=== PATIENT | female | born 1995 | race Caucasian/White ===

== ENCOUNTER → 2023-09-05 | Outpatient (CLI) | payer BC, SELFPAY ==
[2023-09-05 11:13] LABS: Glucose Challenge Gest 1H 50g 148 mg/dL (70-140)
== END | disposition home or self-care (01) ==
LOC: LAB 08:17
PROVIDERS: Referring Provider Advanced Practice Midwife; Visit Provider Advanced Practice Midwife
DX: O28.3 Abnormal ultrasonic finding on antenatal screening of mother (principal); Z3A.27 27 weeks gestation of pregnancy; Z87.59 Personal history of other complications of pregnancy, childbirth and the puerperium; O09.92 Supervision of high risk pregnancy, unspecified, second trimester
CPT/HCPCS: 36415; 82950

== ENCOUNTER → 2023-09-29 | Outpatient (CLI) | payer BC, SELFPAY ==
[2023-09-29 10:41] LABS: Bedside Glucose 90 mg/dL (74-106)
[2023-09-29 10:57] LABS: Glucose GTT-Gestation. Fasting 93 mg/dL (<105)
[2023-09-29 11:53] LABS: Glucose GTT-Gestational 1 Hr 144 mg/dL (<190)
[2023-09-29 13:10] LABS: Glucose GTT-Gestational 2 Hr 155 mg/dL (<165)
[2023-09-29 13:42] LABS: Glucose GTT-Gestational 3 Hr 130 L (<145)
== END | disposition home or self-care (01) ==
LOC: LAB 09:24
PROVIDERS: Referring Provider Advanced Practice Midwife; Visit Provider Advanced Practice Midwife
DX: O99.810 Abnormal glucose complicating pregnancy (principal); Z3A.00 Weeks of gestation of pregnancy not specified
CPT/HCPCS: 36415; 82951; 82952; 82962

== ENCOUNTER 2023-11-24 07:14 | Inpatient (IN) | payer BC, SELFPAY ==
[2023-11-24] VITALS (60 sets, daily range): BP systolic 93–135; BP diastolic 52–82; PULSE 72–102; RESP 16; TEMP 35.7–37.5; O2SAT 96–100; BMI 29.1
[2023-11-24] MEDS: Lactated Ringers 1,000 ML 50 ML IV (07:45)
[2023-11-24 07:57] LABS: Absolute Lymphocyte Count 1.33 X10^3/uL (0.83-4.51); Absolute Neutrophil Count 5.8 X10^3/uL (2.0-7.7); Basophil# 0.04 X10^3/uL; Basophil% 0.5 % (0-1); Eosinophil# 0.07 X10^3/uL; Eosinophils% 0.9 % (0-5); Hematocrit 33.6 % (37-47); Hemoglobin 10.4 g/dL (12.0-15.0); Lymphocyte # 1.33 X10^3/ul (0.83-4.51); Lymphocyte % 16.5 % (19-41); Mean Corpuscular Hgb 26.1 pg (27.0-32.0); Mean Corpuscular Volume 84.2 fL (81-99); Mean Platelet Vol. 12.2 fl (6.2-12.0); Monocyte# 0.74 X10^3/uL; Monocyte% 9.2 % (0-10); NRBC Flagged by Analyzer 0 % (0-5); Neutrophil # 5.82 X10^3/uL (2.7-7.7); Neutrophil % 72.3 % (47-70); Platelet Count 217 K/mm3 (150-450); RBC Distribution Width CV 15.8 % (11.6-14.6); RBC Distribution Width SD 47.8 fl (35.1-43.9); Red Blood Count 3.99 M/mm3 (4.2-5.4); White Blood Count 8.1 K/mm3 (4.4-11.0)
[2023-11-24] MEDS: Oxytocin 15 Units/NS 250ml 15 UNITS/250 ML IV.SOLN 2 UNITS IV (08:09)
--- NOTE | 2023-11-24 08:22 | PCM.HP.OB ---
HPI - General General Date of Admission: 11/24/23 HPI Narrative NIXON GOLDSTEIN, is a 28 F who presents at 40 weeks for elective induction of labor. Suspected macrosomia and history of shoulder dystocia Maternal Data Information FILIPPO Calculator Estimated Delivery Date Method Current WG Current Estimate 11/24/23 Manual 40w 0d PFSH PFSH Medical History (Updated 11/24/23 @ 08:32 by Ghada Cantu) Gestational HTN Home Medications ?Medication ?Instructions ?Recorded ?Last Taken ?Type Lactobacillus 1 cap PO DAILY gut health 11/24/23 11/24/23 History acidophilus-Bifidobac.animalis 2.5 billion cell capsule (Daily Probiotic) beef organ 500 mg PO DAILY supplement 11/24/23 11/24/23 History cholecalciferol (vitamin D3) 25 5,000 unit PO DAILY vitamin 11/24/23 11/24/23 History mcg (1,000 unit) capsule (Vitamin D3) evening primrose oil 500 mg capsule 1,500 mg PO DAILY 11/24/23 11/23/23 History [id number]-[id number] 1 mg 1 tab PO DAILY 11/24/23 11/24/23 History tablet vitamin B complex 1 tab PO DAILY vitamin 11/24/23 11/24/23 History Allergy/AdvReac Type Severity Reaction Status Date / Time No Known Allergies Allergy Verified 11/24/23 08:09 Surgical History (Updated 11/24/23 @ 08:32 by Ghada Cantu) H/O wisdom tooth extraction Social History Smoking Status: Never smoker History Elective abortions Hx Para 3 Spontaneous abortions Hx # Term Pregnancies Ectopic pregnancies Hx # Pregnancies Multiple births # of living children NST FHR Rate Baby A Baseline: 130 Variability:: Moderate Accelerations:: 15 x 15 Decelerations:: None FHR Category:: Category I Uterine Activity:: Every 3-4 minutes, mild ROS Constitutional Constitutional: Reports systems reviewed and no addt'l complaints, except as documented; Denies headache(s) Eyes Eyes: Denies acute decrease in peripheral vision, blurry vision or change in vision ENT HEENT: Reports systems reviewed and no addt'l complaints, except as documented Cardiovascular Cardiovascular: Denies chest pain or dizziness Respiratory/Chest Respiratory/Chest: Denies cough, dyspnea, dyspnea on exertion, shortness of breath at rest or shortness of breath with exertion Gastrointestinal Gastrointestinal: Denies abdominal pain, diarrhea, nausea or vomiting Genitourinary Genitourinary: Denies abdominal discomfort Musculoskeletal Musculoskeletal: Denies limited range of motion Integumentary Integumentary: Reports systems reviewed and no addt'l complaints, except as documented Neurologic Neurologic: Reports systems reviewed and no addt'l complaints, except as documented Psychiatric Psychiatric: Reports systems reviewed and no addt'l complaints, except as documented Endocrine Endocrinology: Reports systems reviewed and no addt'l complaints, except as documented Hematologic/Lymphatic Hematologic/Lymphatic: Reports systems reviewed and no addt'l complaints, except as documented Allergic/Immunologic Allergic/Immunologic: Reports systems reviewed and no addt'l complaints, except as documented Vital Signs Vital Signs Vital Signs: 11/24/23 07:57 11/24/23 07:57 11/24/23 07:57 Temperature 99.5 F H Temperature Source Temporal Pulse Rate Respiratory Rate 16 Blood Pressure BP Systolic BP Diastolic 11/24/23 07:57 11/24/23 07:58 11/24/23 07:58 Temperature 99.5 F H Temperature Source Pulse Rate 94 Respiratory Rate Blood Pressure 121/74 H BP Systolic 121 BP Diastolic 74 Weight Weight: 191 lb 9.307 oz Body Mass Index (BMI) 29.1 Physical Exam Const alert and oriented x3 General Appearance: cooperative Orientation / Consciousness: awake, oriented to person, oriented to place and oriented to time Exam Limitations: no limitations HEENT normocephalic Head and Scalp: normal to inspection, normocephalic and atraumatic Face and Sinus: normal facial exam Eyes General Eye: normal appearance of both eyes Neck full ROM Chest Chest: symmetrical chest wall rise Resp normal respiratory effort and normal air movement Auscultation: clear to auscultation bilaterally Cardio regular rate, regular rhythm, S1 normal heart sound, S2 normal heart sound, no murmurs, no rub, no gallops and no clicks GI normal to inspection, nondistended, normoactive bowel sounds and non-tender appearance of the vagina normal Bladder / Kidney Exam: no CVA tenderness Back/Spine normal ROM Extremity normal to inspection and full ROM Skin no rashes or lesions noted Neuro oriented x3, CN's II-XII intact bilaterally and moves all extremities Sensorium / Orientation: awake, alert and oriented to person Motor Exam: clonus absent Deep Tendon Reflexes: Rt Patellar (L4): 2+ and Lt Patellar (L4): 2+ Labs Labs Labs: Blood Type O NEGATIVE Antibody Screen NEGATIVE Hct 33.6 % (37-47) L Hgb 10.4 g/dL (12.0-15.0) L Syphilis Total Ab Non-reactive Glucose 1 Hr 50 gm 148 mg/dL (70-140) H Gest Glucose Tolerance MG/DL GBS negative O negative RPR negative HBsAG negative HIV negative HepC negative GC/CT negative Rubella Immune NIPT negative Assessment & Plan (1) 40 weeks gestation of : (2) Encounter for induction of labor: (3) History of shoulder dystocia: COMMENT: History of delivery at home 42w2d 20cz6ph Shoulder dystocia. (4) History of episiotomy: (5) History of gestational hypertension: (6) History of vacuum extraction assisted delivery: COMMENT: First delivery, 10lb 4oz, no shoulder (7) History of depression: (8) Rh negative status during : PLAN: Plan 1) Admit to labor and delivery 2) Routine labs 3) Continuous EFM 4) Pain management upon request 5) Pitocin for induction of labor 6) Dr. Cedillo collaborative physician and notified of patient status, above assessment, and plan. 7) Declines LARC 8) Rhogam given 09/05/23 9) Suspected macrosomia, history of shoulder dystocia and decision for induction of labor.
[2023-11-24 08:43] LABS: Syphilis Antibodies Non-reactive
[2023-11-24] MEDS: Lactated Ringers 1,000 ML 999 ML IV (11:31)
[2023-11-24] MEDS: fentaNYL-bupivacaine (epidural) 100 ML BAG EPIDURAL (12:45)
[2023-11-24] MEDS: Oxytocin 15 Units/NS 250ml 15 UNITS/250 ML IV.SOLN 334 UNITS IV (18:03)
--- NOTE | 2023-11-24 18:25 | OP.PCM_ITS ---
Assessment & Plan (1) Rh negative status during : (2) History of depression: (3) Vaginal delivery: (4) First degree perineal laceration: Maternal Data Information FILIPPO Calculator Estimated Delivery Date Method Current WG Current Estimate 11/24/23 Manual 40w 0d Vaginal Delivery Maternal Presentation Maternal Presentation: Medically Indicated Induction (suspected LGA and history of shoulder dystocia) Type of Induction: Pitocin Operative Information Date of Procedure: 11/24/23 Pre-Operative Diagnosis: Induction of labor Post-Operative Diagnosis: , first degree perineal laceration Surgery / Procedure Performed: Spontaneous Vaginal Delivery Type of Anesthesia: Epidural Estimated Blood Loss: 300 ml Time of Delivery: 17:59 Findings Description of Procedure: Progressed to complete dilation. Epidural for pain management. of viable infant over first degree perineal laceration. APGARS 9,9 respectively. Infant head delivered with body forthcoming. Placed on maternal abdomen, strong cry. Mouth and nares suctioned for secretions. Pitocin started for active 3rd stage management. Cord doubly clamped and cut by FOB after pulsations ceased, delayed cord clamping. Placenta delivered intact via saez, 3 vessel cord intact. Perineum inspected and revealed 1st degree perineal laceration. Repaired with 3.0 vicryl rapide and epidural. Fundus firm and hemostasis achieved. EBL 300ml. Mom and baby stable, planning to breastfeed. Family bonding well. Dr.Russell rodriguez otified of delivery. Presentation: Vertex and NARESH Amniotic Membrane Rupture Type: Artificial Amniotic Fluid Description: Clear Placental Delivery Description: Spontaneous Placenta Disposition: [facility] Cord Vessel Description: 3 Vessels Cord Entanglement: None A Gender: Female (1 minute): 9 (5 minute): 9 Delayed Cord Clamping: Yes Post Vaginal Delivery Medications Given After Delivery: IV Pitocin Episiotomy Description: None Laceration: Perineal Extension/lac and 1st degree Complication Complications: None
[2023-11-24] MEDS: Oxytocin 15 Units/NS 250ml 15 UNITS/250 ML IV.SOLN 83 UNITS IV (18:35)
[2023-11-24] MEDS: 0.9% Saline Lock 10 ML Syringe IV (21:42)
[2023-11-25] VITALS (10 sets, daily range): BP systolic 108–127; BP diastolic 60–86; PULSE 77–93; RESP 16–18; TEMP 36.4–37; O2SAT 97–99
[2023-11-25] MEDS: Rho(D) Immune Globulin 300 MCG (1500 Unit) Syringe IV (05:55)
[2023-11-25] MEDS: 0.9% Saline Lock 10 ML Syringe IV (05:55)
[2023-11-25] MEDS: Ibuprofen 600 MG Tablet PO ×3 (06:03→20:16)
[2023-11-25 06:24] LABS: Absolute Neutrophil Count 7.8 X10^3/uL (2.0-7.7); Basophil# 0.02 X10^3/uL; Basophil% 0.2 % (0-1); Eosinophil# 0.07 X10^3/uL; Eosinophils% 0.7 % (0-5); Hematocrit 30.9 % (37-47); Hemoglobin 9.4 g/dL (12.0-15.0); Lymphocyte % 14.5 % (19-41); Mean Corp Hgb Conc 30.4 g/dL (32-36); Mean Corpuscular Hgb 25.9 pg (27.0-32.0); Mean Corpuscular Volume 85.1 fL (81-99); Mean Platelet Vol. 12.2 fl (6.2-12.0); Monocyte# 0.98 X10^3/uL; Monocyte% 9.5 % (0-10); NRBC Flagged by Analyzer 0 % (0-5); Neutrophil # 7.75 X10^3/uL (2.7-7.7); Neutrophil % 74.6 % (47-70); Platelet Count 186 K/mm3 (150-450); RBC Distribution Width CV 15.7 % (11.6-14.6); RBC Distribution Width SD 48.2 fl (35.1-43.9); Red Blood Count 3.63 M/mm3 (4.2-5.4); White Blood Count 10.4 K/mm3 (4.4-11.0)
[2023-11-25] MEDS: Acetaminophen 500 MG Tablet 1000 MG PO ×3 (07:57→23:49)
--- NOTE | 2023-11-25 08:22 | PCM.PN.OB ---
Subjective Subjective Denies complaint others than she is unable to void. Objective Data Objective Data Vital Signs: Vital Signs Temp Pulse Resp BP Pulse Ox O2 Del Method 98.6 F 93 18 108/65 98 Room Air 11/25/23 06:02 11/25/23 07:54 11/25/23 06:02 11/25/23 07:54 11/25/23 07:54 11/25/23 06:02 Oxygen Delivery Method Room Air Weight: 191 lb 9.307 oz Body Mass Index (BMI) 29.1 Intake & Output: Intake and Output for Last 24 Hours 11/23/23 11/24/23 11/25/23 23:59 23:59 23:59 Intake Total 2518.81 / 2518.81 Output Total 900 / 900 4100 / 4100 Balance 1618.81 / 1618.81 -4100 / -4100 Lab / Micro Data 11/25/23 06:10 Labs: Laboratory Results - last 24 hr 11/24/23 07:45: Syphilis Total Ab Non-reactive, Blood Type O NEGATIVE, Antibody Screen NEGATIVE 11/25/23 06:10: WBC 10.4, RBC 3.63 L, Hgb 9.4 L, Hct 30.9 L, MCV 85.1, MCH 25.9 L, MCHC 30.4 L, RDW Std Deviation 48.2 H, RDW Coeff of Lori 15.7 H, Plt Count 186, MPV 12.2 H, Immature Gran % (Auto) 0.500, Neut % (Auto) 74.6 H, Lymph % (Auto) 14.5 L, Robertson % (Auto) 9.5, Eos % (Auto) 0.7, Baso % (Auto) 0.2, Absolute Neuts (auto) 7.8 H, Absolute Lymphs (auto) 1.50, Nucleated RBC % 0 Physical Exam Const alert, oriented x3 and no apparent distress HEENT normocephalic GI soft to palpation, non-tender and non-distended GI Narrative: fundus firm, mid & below umbilicus Extremity normal to inspection and no calf tenderness Assessment & Plan (1) Vaginal delivery: COMMENT: PPD#1 (2) Urinary retention: PLAN: Plan Place paulino for 24 hours to rest bladder. Routine PP care.
[2023-11-25] MEDS: Ferrous Sulfate 325 MG Tablet PO (12:11)
--- NOTE | 2023-11-25 13:40 | CASEMGMT ---
Social Work Assessment Labor and Delivery Unit Patient Address: [address], [place] [id number] Phone number: [phone] Date of Referral: 11/24/23 Time of Referral:? 1912 Referred By: Alize Merchant Date of Intervention: ??11/25/23 Time of Intervention:? 1044 Reason for Referral:?history of depression Sw completed chart review and acknowledges social work consult due to maternal mental health history. Sw presented to bedside and introduced self to mother of baby (PRABHU- Dilia) and father of baby (PERLA- Bradford). Sw explained sw role and completed psychosocial assessment. History obtained from: medical records, MOB and FOB. Household composition: Currently residing in the family home is PRABHU, PERLA, their three older children (Efra- 6, Piter- 4 and Paige- 2). baby to be added to residence when ready for discharge. Parents deny any issues or concerns with their current housing. Patient's parent/guardian status:?PRABHU states that she and PERLA have been together for 7 years after being introduced to each other by a family friend. No concerns reported of domestic violence or intimate partner violence. This is fourth child for both parents together. ? Medical History: ?PRABHU is 28 year old female who is 4, para 3- now 4 following labor and delivery of baby. PRABHU received routine care during with [facility]. PRABHU presented to hospital for scheduled, elective induction of labor. Baby, Lilly Arechiga, was born on 11/24/23 via vaginal delivery. Baby weighed 9lb 13oz with apgars of 8 and 9 at one and five minutes of life, respectfully. PRABHU states that breast feeding is going well and baby will be followed by Dr. Aldana. Educational Status:? Both parents graduated from high school. FOB has his Master's degree and MOB has her Bachelor's. No difficulty with reading, learning or comprehension. 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 MOB is a stay at home mom. Infant Supplies: Parents have obtained all necessary baby supplies, including: car seat, safe sleep space, clothes, diapers and wipes. Childcare/Caregiver(s):? MOB will be the primary caregiver to baby along with FOB when he is not working. Transportation:?? Both parents have their drivers license and reliable means of transportation. No barriers at this time. Programs/Agencies Involved: Parents are not connected to any community resources that assist them financially. PRABHU denies linkage to any mental health services or supports,. Children Services/Legal Issues:??? NO history of children services involvement, no issues or concerns warranting referral to be made at this time. Behavioral Health Issues: ??Mental Health History: PERLA denies mental health history. PRABHU states that she was diagnosed with anxiety and depression in her teen years, but has also experienced depression in the past. MOB states that she had a traumatic delivery with her second baby, and that was the period that was the hardest for her. MOB states that she has been anxious and worried leading up to this delivery for similar reasons. MOB states that she is struggling with similar medical issues following this delivery and as a result she is anxious and worried about these issues. PRABHU completed [place] Depression Scale, her score was a 9. ?Sw provided education and support. MOB states that she finds it difficult to open up and talk about what she is struggling with, but acknowledges that this is something that she will have to work on during this time. ?? Substance Use History: Parents deny substance use prior to and during . ?? Family History:?Parents deny family history of addiction/ substance use or significant mental health diagnoses.? Drug Screens: No drug screens observed in chart review. Family/Social Stressors:? Parents deny any issues, concerns or stressors at this time. Support Systems: PRABHU identifies that FOB and both sets of grandparents are her biggest supports. Depression/Shaken Baby/Safe Sleeping: Sw educated both parents on signs and symptoms of mood and anxiety disorders to be on the lookout for. Parents express understanding. FOB states that he would know how to recognize if MOB were struggling with her mental health and he would know how to help her. MOB also states that she will work on opening up regarding these things. MOB states that when she struggles with her mental health she feels: enraged, angry, frustrated and overwhelmed. Sw provided support and education and encouraged MOB to utilize healthy and appropriate coping skills and to talk to her OBGYN about any ongoing/ lingering symptoms she may be experiencing. MOB expressed understanding. Sw educated parents on shaken baby prevention and ABCs of safe sleep. Parents express understanding. ASSESSMENT:?MOB and baby admitted following labor and delivery of . MOB sitting in bed feeding baby and open to meeting and talking with sw. MOB talkative and open about her past mental health/ experiences. MOB and FOB understanding of signs of mood and anxiety disorders to be on the lookout for. MOB encouraged to stay in contact with her OBGYN during this period. Parents have natural supports in place and have all necessary baby supplies. PLAN:?No other services requested or indicated. MOB and baby to be discharged when medically ready. Parents were provided literature regarding: signs and symptoms of baby blues and mood and anxiety disorders, Help Me Grow, shaken baby prevention, ABCs of safe sleep and a list of county resources that are available for them should any needs present themselves. Samantha Abbasi, NET DEVELOPER CONTRACT, BLOCKER AND POLISHER
[2023-11-25] MEDS: Senna/Docusate Sodium 1 Tablet PO (15:20)
[2023-11-25] MEDS: Lidocaine 5% 35GM Tube 1 APPLIC TOPICAL ×2 (15:21→20:17)
[2023-11-25] MEDS: Dibucaine 30 GM Tube 1 APPLIC TOPICAL (15:24)
[2023-11-26 03:14] VITALS: PULSE 82; TEMP 36.7; O2SAT 99
[2023-11-26 03:15] VITALS: BP 122/79; PULSE 84; PULSE 85; RESP 16; TEMP 36.7; O2SAT 98
[2023-11-26] MEDS: Ibuprofen 600 MG Tablet PO (05:25)
--- NOTE | 2023-11-26 07:34 | NURSING ---
11/24 Instructor present and verified acknowledgement of medications by student.-Alessandra RN
[2023-11-26 08:05] VITALS: BP 118/62; PULSE 86; O2SAT 98
[2023-11-26 08:06] VITALS: PULSE 90; O2SAT 87
[2023-11-26 08:27] VITALS: BP 118/62; PULSE 89; RESP 16; TEMP 36.7; O2SAT 98
--- NOTE | 2023-11-26 09:06 | PCM.PROGNOTE ---
Subjective Subjective patient seen at bedside, doing well. Patient reports good pain control. lochia mild. Objective Data Objective Data Vital Signs: Vital Signs Temp Pulse Resp BP Pulse Ox O2 Del Method 98.1 F 89 16 118/62 98 Room Air 11/26/23 08:27 11/26/23 08:27 11/26/23 08:27 11/26/23 08:27 11/26/23 08:27 11/26/23 08:27 Oxygen Delivery Method Room Air Weight: 86.9 kg Body Mass Index (BMI) 29.1 Intake & Output: Intake and Output for Last 24 Hours 11/24/23 11/25/23 11/26/23 23:59 23:59 23:59 Intake Total 2518.81 / 2518.81 Output Total 900 / 900 7100 / 7100 560 / 560 Balance 1618.81 / 1618.81 -7100 / -7100 -560 / -560 Lab / Micro Data 11/25/23 06:10 Physical Exam Const alert and oriented x3 General Appearance: cooperative HEENT normocephalic Neck General: normal visual inspection GI soft to palpation and non-distended GI Narrative: Fundus firm Extremity normal to inspection and no calf tenderness Skin no rashes or lesions noted Neuro oriented x3 and CN's II-XII intact bilaterally Psych mental status grossly normal Assessment & Plan Assessment/Plan (1) Vaginal delivery: (2) First degree perineal laceration: PLAN: Plan PPD# 2 , Doing well Routine care pain mgmt ambulation dc home
--- NOTE | 2023-11-26 09:07 | DCINST_ITS ---
Discharge Instructions Diet Discharge Diet: No restrictions Activity May resume sexual activity in: 6-8 weeks Dressing / Incision Call your doctor if you observe: Fever of 101 or Higher, Inability to urinate, Using more than 1 pad per hour and Uncontrolled pain Follow Up Care Please Follow Up With: Lucretia Quezada MD When: 1-2 weeks post and again at 6 weeks post . [phone] Test Results: Test results from this visit will be discussed in further detail at your follow- up appointment, if applicable. Discharge Plan Admission Admit Date/Time: 11/24/23 07:14 Attending Provider: Alize Merchant Primary Care Provider: WILLY MACIAS Discharge Orders/Prescriptions Prescriptions: New acetaminophen 500 mg Tablet 1,000 mg PO Q6H PRN PRN (Reason: Pain 1-10 Or Fever) Qty: 0 0RF ferrous sulfate [FeroSul] 325 mg (65 mg iron) Tablet 325 mg PO DAILY@1200 Qty: 0 0RF ibuprofen 600 mg Tablet 600 mg PO Q6H PRN PRN (Reason: Pain Score 1-10) Qty: 0 0RF Continued [id number]-tqj-Dn-FA 1 mg tablet 1 tab PO DAILY vitamin B complex Tablet 1 tab PO DAILY cholecalciferol (vitamin D3) [Vitamin D3] 25 mcg (1,000 unit) capsule 5,000 unit PO DAILY Daily Probiotic 2.5 billion cell capsule 1 cap PO DAILY beef organ 500 mg PO DAILY evening primrose oil 500 mg capsule 1,500 mg PO DAILY Rx Instructions: give with meal/snack Referrals / Follow Up: WILLY MACIAS [Other] Disposition Disposition (needs filled in before D/C Order can be placed): Home, Self Care
== END 2023-11-26 11:00 | disposition home or self-care (01) | DRG 807 ==
PROVIDERS: Admitting Provider Advanced Practice Midwife; Referring Provider Advanced Practice Midwife; Visit Provider Advanced Practice Midwife
DX: O36.63X0 Maternal care for excessive fetal growth, third trimester, not applicable or unspecified (principal); Z37.0 Single live birth; O26.893 Other specified pregnancy related conditions, third trimester; Z67.41 Type O blood, Rh negative; O70.0 First degree perineal laceration during delivery; O99.893 Other specified diseases and conditions complicating puerperium; R33.9 Retention of urine, unspecified; Z3A.40 40 weeks gestation of pregnancy; Z87.59 Personal history of other complications of pregnancy, childbirth and the puerperium
CPT/HCPCS: 59025; 59050; 85025; 86780; 86850; 86900; 86901; 90384; 99221; J7120; A4216; G0378; J2790; J2791